=== PATIENT | female | born 1965 ===

== ENCOUNTER 2023-11-10 07:22 | Day surgery (SDC) | payer OTHER ==
[2023-11-04 09:26] LABS: HEMATOCRIT 44.5 % (36.0-45.00); HEMOGLOBIN 15.3 g/dL (12.0-15.00); MEAN CORPUSCULAR HEMOGLOBIN 28.2 pg (27.00-32.0); MEAN CORPUSCULAR HGB CONC 34.4 g/dl (32.0-36.0); PLATELET COUNT 326 K/uL (150-450); RED BLOOD COUNT 5.44 M/uL (4.00-6.00); RED CELL DISTRIBUTION WIDTH 13.9 % (11.5-14.5)
[2023-11-04 09:28] LABS: PH,URINE 5.5 (5.0-8.0); URINE APPEARANCE Clear; URINE BILIRRUBIN Negative (NEGATIVE); URINE BLOOD Negative; URINE COLOR Yellow; URINE KETONE Negative (NEGATIVE); URINE LEUKOCYTE Negative; URINE NITRATE Negative; URINE PROTEIN Negative (NEGATIVE); URINE UROBILINOGEN 0.2 E.U./dl
[2023-11-04 09:33] LABS: URINE BACTERIA 539.1 uL (0.0-1933); URINE EPITHELIAL CELLS 19.7 uL (0.0-38.8); URINE RBC 2.2 uL (0.0-20.8); URINE WBC 7.1 uL (0.0-23.2)
[2023-11-04 10:15] LABS: URINE CAST 0.15 uL (0.0-1.40); URINE GLUCOSE >=1000 MG/DL (NEGATIVE)
[2023-11-04 10:19] LABS: INR 0.95; PARTIAL THROMBOPLASTIN TIME 27.3 SECONDS (22.0-34.0)
[2023-11-04 10:31] LABS: ALBUMIN 4.4 gm/dL (3.4-5.0); BILIRUBIN TOTAL 0.5 mg/dL (0.3-1.2); CALCIUM 9.9 mg/dL (8.5-10.1); CREATININE SERUM 0.47 mg/dL (0.55-1.02); GFR 136.58; POTASSIUM 4.74 mEq/L (3.5-5.1); TOTAL PROTEIN 7.4 gm/dL (6.4-8.2)
[~2023-11-10] VITALS: Ht 157.5 cm; Wt 65.3 kg
[~2023-11-10 07:22] MED LIST: OZEMPIC1 MG/0.71; SYNJARDY XR 121 EACH PO; ZESTRIL20 MG PO; ZETIA10 MG PO; ZOCOR20 MG PO
[2023-11-10] MEDS ORDERED: BUPIVACAINE HCL 30 ML VIAL IJ ONE (12:30)
[2023-11-10] MEDS ORDERED: CLINDAMYCIN PHOSPHATE 150 MG/ML (900mg) IV ONE (12:30)
== END 2023-11-10 15:45 | disposition home or self-care (01) ==
LOC: CIR.AMB 07:22
PROVIDERS: ATTEND Orthopaedic Surgery
DX: M77.11 Lateral epicondylitis, right elbow (principal); M66.231 Spontaneous rupture of extensor tendons, right forearm; M24.821 Other specific joint derangements of right elbow, not elsewhere classified; I10 Essential (primary) hypertension; E11.9 Type 2 diabetes mellitus without complications; E78.00 Pure hypercholesterolemia, unspecified; Z88.6 Allergy status to analgesic agent